=== PATIENT | female | born 1950 | race Caucasian/White ===

== ENCOUNTER 2018-09-04 16:42 | Emergency (ER) | payer BC ==
[~2018-09-04] VITALS: Ht 160 cm; Wt 54.4 kg
[~2018-09-04 16:42] MED LIST: Anti-depressant; METH4TAB PO; Triamterene; VALA100033 PO
--- NOTE | 2018-09-04 17:10 | ED Upper Extremity ---
General Chief Complaint: Upper Extremity Stated Complaint: MIDDLE FINGER L HAND INJ AFTER FALLING OFF STOOL Nursing Triage Note: PT CO OF L MIDDLE FINGER STATES FELL OFF OF STEP LADDER AND HIT SHELF W FINGER, RATES PAIN 11/30 Nursing Sepsis Screen: No Definite Risk Source: patient Exam Limitations: no limitations History of Present Illness Date Seen by Provider: Sep 04, 2018 Time Seen by Provider: 16:55 Initial Comments 68-year-old female who presents to the emergency room with complaints of left third finger pain after she fell off of a step ladder and hit a shelf with her finger. She has mild swelling left third finger. Denies other injuries from the fall. Onset: just prior to arrival Pain/Injury Location: left 3rd finger Method of Injury: fell Modifying Factors: Worse With Movement Allergies and Home Medications Allergies Coded Allergies: No Known Drug Allergies (Unverified , 02/04/13) Home Medications Hydrocodone Bit/Acetaminophen 1 Tab Tab, 1 EACH PO Q4-6HR PRN for PAIN-MODERATE Prescribed by: MANDEEP VALENZUELA on 09/04/18 4885 Patient Home Medication List Home Medication List Reviewed: Yes Review of Systems Constitutional: see HPI; No chills, No fever Musculoskeletal: see HPI, joint pain (left 3rd finger) All Other Systems Reviewed Negative Unless Noted: Yes Past Lgeprve-Uvygnt-Trjntb Hx Past Med/Social Hx: Reviewed Nursing Past Med/Soc Hx Patient Social History Alcohol Use: Rarely Uses Recreational Drug Use: No Smoking Status: Never a Smoker Recent Foreign Travel: No Contact w/Someone Who Travel: No Recent Infectious Disease Expo: No Recent Hopitalizations: No Past Medical History Surgeries: Yes ( x2, face lift) Respiratory: No Cardiac: Yes (Prolapse mitral valve) Neurological: No Gastrointestinal: No Musculoskeletal: No Endocrine: No Cancer: No Psychosocial: No Integumentary: No Blood Disorders: No Family Medical History Reviewed Nursing Family Hx Physical Exam Vital Signs Vital Signs - First Documented 09/04/18 16:50 Temp 97.4 Pulse 86 Resp 14 B/P (MAP) 127/80 (96) Pulse Ox 98 Capillary Refill : Less Than 3 Seconds Height, Weight, BMI Height: 5'3.00" Weight: 120lbs. oz. 54.338722tp; BMI Method:Stated General Appearance: WD/WN, no apparent distress Cardiovascular: normal peripheral pulses, regular rate, rhythm, no edema, no gallop, no JVD, no murmur Respiratory: chest non-tender, lungs clear, normal breath sounds, no respiratory distress, no accessory muscle use Hand: Left (3rd finger), swelling Neurologic/Tendon: normal sensation, normal motor functions, normal tendon functions, responds to pain, no evidence tendon injury Neurologic/Psychiatric: alert, normal mood/affect, oriented x 3 Skin: normal color, warm/dry Progress/Results/Core Measures Results/Orders My Orders Orders - MANDEEP VALENZUELA Finger(S) (09/04/18 16:54) Hydrocodone/Apap 5/325 Tablet (Lortab 5 (09/04/18 17:15) Vital Signs/I&O Blood Pressure Mean: 96 Progress Progress Note : Time: 17:12 Progress Note I have seen and evaluated the patient. She was placed in a baseball finger splint. She agrees with plan of care, plans for discharge, return precautions were given. Departure Impression Primary Impression: Finger fracture, left Qualified Codes: S62.663A - Nondisplaced fracture of distal phalanx of left middle finger, initial encounter for closed fracture Disposition: 01 HOME, SELF-CARE Condition: Stable/Unchanged Departure-Patient Inst. Decision time for Depature: 17:11 Referrals: RE GOETZ DO (PCP/Family) Primary Care Physician Patient Instructions: Finger Fracture Add. Discharge Instructions: Ice to the sore areas at 20 minute intervals. Tylenol and Motrin as directed by the bottle for pain relief. Use the hydrocodone as needed for additional pain relief unrelieved by Tylenol and Motrin. Wear the splint at all times. Follow- up with your primary care provider within 1 week for recheck. Return back to the emergency room for worsening symptoms or concerns as needed. All discharge instructions reviewed with patient and/or family. Voiced understanding. Scripts Hydrocodone Bit/Acetaminophen (Hydrocodone/Acetaminophen 5/325mg Tablet) 1 Tab Tab 1 EACH PO Q4-6HR PRN for PAIN-MODERATE MDD 10, #10 TAB Prov: MANDEEP VALENZUELA 09/04/18 MANDEEP VALENZUELA Sep 04, 2018 17:10
[2018-09-04] MEDS ORDERED: ACHD5005 PO (17:12)
[2018-09-04] MEDS ORDERED: HYDROcodone/APAP 5 MG/325 MG (LORTAB) TAB PO ONE (17:15)
--- NOTE | 2018-09-04 17:15 | Diagnostic Imaging Report ---
EXAMINATION: Single PA view of the left hand, with oblique and lateral views of the third digit. INDICATION: Traumatic left third digit injury. COMPARISON: None. FINDINGS: There is generalized osteopenia of the visualized bones. There is a mildly displaced fracture of the distal phalanx of the third digit, with mild palmar displacement of the distal fracture fragment. Fracture line extends to the distal interphalangeal joint. No additional fractures are identified. Soft tissues are unremarkable. IMPRESSION: Mildly displaced intra-articular fracture of the distal phalanx of the third digit. Dictated by: Dictated on workstation # [id number]
[2018-09-04 17:17] VITALS: BP 127/80
--- OUTSIDE RECORDS SUMMARY | 2018-09-04 20:12 | XMS REPORT | Continuity of Care Document ---
Author Organization Unknown Address Unknown Allergies Active Description Code Type Severity Reaction Onset Reported/Identified Relationship to Patient Clinical Status Yes No Known Drug Allergies [id number] Drug Allergy Unknown N/A 02/04/2013 Medications There is no data. Problems There is no data. Procedures There is no data. Results There is no data. Encounters ACCT No. Visit Date/Time Discharge Status Pt. Type Provider Facility Loc./Unit Complaint [id number] 09/04/2018 16:43:00 09/04/2018 17:23:00 DIS Emergency MANDEEP VALENZUELA [facility] MIDDLE FINGER L HAND INJ AFTER FALLING OFF STOOL [id number] 02/04/2013 10:35:00 02/04/2013 13:33:00 DIS Emergency
--- OUTSIDE RECORDS SUMMARY | 2018-09-04 20:12 | XMS REPORT | Continuity of Care Document ---
Author Author [facility] Organization [facility] Address Unknown Phone Unavailable Care Team Providers Care Boom Worker Name Role Phone GOETZRE DO PP Insurance Providers Payer Name Policy Number Subscriber Name Relationship [facility] [id number] Deborah Bright 01 Self / Same As Patient Advance Directives Directive Response Recorded Date Advance Directives N 02/04/13 10:45am Health Care Power of [employer] Worker N 02/04/13 10:45am Organ Donor N 02/04/13 10:45am Problems No Known Problems or Medical conditions. Social History History Response Recorded Date/Time Alcohol Use Occasionally Uses 02/04/13 10 :45am Recreational Drug Use N 02/04/13 10:45am Allergies, Adverse Reactions, Alerts Allergen Type Severity Reaction Last Updated No Known Drug Allergies 02/04/13 Medications Medication Dose Units Route Sig Qty Days Valacyclovir Hcl (Valtrex) 1000 Mg PO TID 30 Methylprednisolone (Medrol Dose Pack) 0 PO UD 1 [Anti-depressant] [Triamterene] Response Recorded Date/Time Status not known Unknown Results No Known Relevant Diagnostic Tests, Laboratory Data and/or Discharge Summary. Encounters Encounter Location Date/Time Departed Emergency Room [facility] 10:35am
== END 2018-09-04 17:23 | disposition home or self-care (01) ==
LOC: EDUNIT# 16:42 → ER 16:43
DX: S62.603A Fracture of unspecified phalanx of left middle finger, initial encounter for closed fracture (principal); Z98.890 Other specified postprocedural states; W11.XXXA Fall on and from ladder, initial encounter; W22.09XA Striking against other stationary object, initial encounter
CPT/HCPCS: 73140

== ENCOUNTER → 2020-05-29 | Outpatient (CLI) | payer BC ==
[~2020-05-29] MED LIST changes: +ACHD5005 PO; +CATHETER FLUSH 10 ML SYR IV PRN; +HOLD METFORMIN - RECEIVED CONTRAST 20 ML VIAL IV SCH; +IOHEXOL 350 MG/ML 100 ML (OMNIPAQUE 350) VIAL IV ONE; +NS 100 ML (IVPB) BAG IV ONE
[2020-05-29 14:51] LABS: BUN/CREATININE RATIO 24; GFR ESTIMATED > 60
--- NOTE | 2020-05-29 17:03 | Diagnostic Imaging Report ---
PROCEDURE: CT abdomen and pelvis with and without contrast. TECHNIQUE: Precontrast acquisitions were acquired through the abdomen and pelvis. Multiple contiguous axial images were obtained through the abdomen and pelvis after the administration of intravenous contrast. Auto Exposure Controls were utilized during the CT exam to meet ALARA standards for radiation dose reduction. INDICATION: Gross hematuria and pelvic pain. COMPARISON: None. FINDINGS: The lung bases are clear. The heart is normal in size. There is a moderate-sized hiatal hernia. There is a hypoattenuating lesion in segment of the liver which measures up to 2.9 x 2.3 cm in size. This demonstrates irregular mostly peripheral and posterior enhancement which fills in on delayed imaging, and generally appears similar to the blood pool. This appears most consistent with a hemangioma. There is no biliary dilatation. No calcified stones are seen in the gallbladder. The spleen appears normal. The pancreas is unremarkable. The adrenal glands appear normal. There is a small cortical scar at the superior right kidney. The left kidney demonstrates normal enhancement. There is no hydronephrosis bilaterally. No calculi are seen bilaterally. There is no hydroureter. There is a calcification adjacent to the distal right ureter which may be a phlebolith or calcified colonic diverticulum. The bladder is nondistended, but no filling defects are demonstrated. The bowel loops are nondistended without obstruction. The appendix is not well seen, but no secondary findings of appendicitis are demonstrated. There is moderate stool in the distal colon. There is colonic diverticulosis. No diverticulitis is seen. No free fluid or free air is seen. No acute osseous abnormality is seen. There are degenerative changes at L2-L3. IMPRESSION: 1. Normal-appearing kidneys bilaterally. No masses, calculi, or hydronephrosis. 2. Mass on the inferior right liver is most consistent with a hemangioma. 3. Moderate-sized hiatal hernia. 4. Colonic diverticulosis without diverticulitis. Dictated by: Dictated on workstation # [id number]
== END ==
LOC: RAD 14:18
PROVIDERS: ATTEND Nurse Practitioner Family
DX: R31.0 Gross hematuria (principal); K44.9 Diaphragmatic hernia without obstruction or gangrene; K57.30 Diverticulosis of large intestine without perforation or abscess without bleeding
CPT/HCPCS: 36415; 74178; 82565; 84520

== ENCOUNTER 2020-06-05 19:18 | Emergency (ER) | payer BC ==
[~2020-06-05] VITALS: Ht 158 cm; Wt 56.7 kg
[~2020-06-05 19:18] MED LIST changes: -CATHETER FLUSH 10 ML SYR IV PRN; -HOLD METFORMIN - RECEIVED CONTRAST 20 ML VIAL IV SCH; -IOHEXOL 350 MG/ML 100 ML (OMNIPAQUE 350) VIAL IV ONE; -NS 100 ML (IVPB) BAG IV ONE
[2020-06-05] MEDS ORDERED: TRIA1CAP4 (19:39)
[2020-06-05] MEDS ORDERED: VENL150C98 (19:39)
[2020-06-05 19:41] LABS: BILIRUBIN,URINE NEGATIVE (NEGATIVE); CLARITY,URINE SL CLOUDY; COLOR,URINE YELLOW; GLUCOSE, URINE (UA) NEGATIVE (NEGATIVE); KETONES,URINE NEGATIVE (NEGATIVE); LEUKOCYTE ESTERASE ,URINE NEGATIVE (NEGATIVE); NITRITE,URINE NEGATIVE (NEGATIVE); PH,URINE 5.5 (5-9); PROTEIN,URINE 2+ (NEGATIVE)
[2020-06-05 19:59] LABS: BASOPHILS # (AUTO) 0.2 10^3/uL (0.0-0.1); BASOPHILS % (AUTO) 2 % (0-10); EOSINOPHILS # (AUTO) 0.5 10^3/uL (0.0-0.3); EOSINOPHILS % (AUTO) 5 % (0-10); HEMATOCRIT 39 % (35-52); HEMOGLOBIN 13.2 g/dL (11.5-16.0); LYMPHOCYTES # (AUTO) 2.6 10^3/uL (1.0-4.0); LYMPHOCYTES % (AUTO) 26 % (12-44); MEAN CORPUSCULAR HEMOGLOBIN 31 pg (25-34); MEAN CORPUSCULAR HGB CONC 34 g/dL (32-36); MEAN CORPUSCULAR VOLUME 91 fL (80-99); MEAN PLATELET VOLUME 9.8 fL (9.0-12.2); MONOCYTES # (AUTO) 1.2 10^3/uL (0.0-1.0); MONOCYTES % (AUTO) 11 % (0-12); NEUTROPHILS # (AUTO) 5.8 10^3/uL (1.8-7.8); NEUTROPHILS % (AUTO) 56 % (42-75); PLATELET COUNT 253 10^3/uL (130-400); WHITE BLOOD COUNT 10.2 10^3/uL (4.3-11.0)
[2020-06-05] MEDS ORDERED: KETOROLAC 30 MG/ML VIAL IVP ONE (20:00)
--- NOTE | 2020-06-05 20:01 | ED General ---
General Chief Complaint: General Problems/Pain Stated Complaint: L SIDED ABDOMINAL PAIN Nursing Triage Note: intermittant left lower abdomen/groin pain Nursing Sepsis Screen: No Definite Risk Source of Information: Patient Exam Limitations: No Limitations History of Present Illness Date Seen by Provider: Jun 05, 2020 Time Seen by Provider: 19:43 Initial Comments This is a healthy-appearing 70-year-old female who presents to the ER with complaints of left lower quadrant abdominal pain 3 weeks. States she's been having this pain on and off for 3 weeks along with gross hematuria. Has followed up with her primary care and had labs, UA and CT abdomen and pelvis with and without contrast on May 29. States CT abdomen and pelvis did not show anything, but she has not heard anything regarding her labs. Tonight the pain is more severe and rates 10/10, sharp and stabbing, localized to LLQ. Additionally, she reports pressure like she has to urinate but is unable to urinate. Has not taking anything prior to arrival for pain. Denies fevers, chills, cough, shortness of breath, nausea, vomiting, diarrhea, or dysuria. Allergies and Home Medications Allergies Coded Allergies: No Known Drug Allergies (Unverified , 02/04/13) Home Medications Hydrocodone Bit/Acetaminophen 1 Tab Tab, 1 EACH PO Q4-6HR PRN for PAIN-MODERATE Prescribed by: MANDEEP VALENZUELA on 09/04/18 0262 Patient Home Medication List Home Medication List Reviewed: Yes Review of Systems Review of Systems Constitutional: no symptoms reported EENTM: no symptoms reported Respiratory: no symptoms reported Cardiovascular: no symptoms reported Gastrointestinal: see HPI Genitourinary: see HPI Musculoskeletal: no symptoms reported Skin: no symptoms reported Psychiatric/Neurological: No Symptoms Reported Hematologic/Lymphatic: No Symptoms Reported Immunological/Allergic: no symptoms reported Past Xnrvfdo-Bgizbu-Tlchlc Hx Patient Social History Alcohol Use: Rarely Uses Smoking Status: Never a Smoker 2nd Hand Smoke Exposure: No Recent Infectious Disease Expo: No Recent Hopitalizations: No Immunizations Up To Date Tetanus Booster (TDap): Unknown Seasonal Allergies Seasonal Allergies: No Past Medical History Surgeries: Yes ( x2, face lift) Section Respiratory: No Cardiac: Yes (Prolapse mitral valve) Hypertension Neurological: No Genitourinary: No Gastrointestinal: No Musculoskeletal: No Endocrine: No HEENT: No Cancer: No Psychosocial: Yes Anxiety Integumentary: No Blood Disorders: No Physical Exam Vital Signs Vital Signs - First Documented 06/05/20 19:27 Temp 35.7 Pulse 90 Resp 18 B/P (MAP) 167/93 (117) Pulse Ox 99 O2 Delivery Room Air Capillary Refill : Less Than 3 Seconds Height, Weight, BMI Height: 5'3.00" Weight: 120lbs. oz. 54.320435iz; 22.00 BMI Method:Stated General Appearance: No Apparent Distress, WD/WN Eyes: Bilateral Eye Normal Inspection, Bilateral Eye EOMI HEENT: PERRL/EOMI, Moist Mucous Membranes Neck: Full Range of Motion, Normal Inspection Respiratory: Lungs Clear, Normal Breath Sounds Cardiovascular: Regular Rate, Rhythm, No Edema, No Murmur Gastrointestinal: Normal Bowel Sounds, Soft; No Distended; Tenderness (LLQ with deep palpation ) Genital/Rectal: Normal Genital Exam, Normal Vaginal Exam; No Blood at Uretheral Meatus Back: Normal Inspection, No CVA Tenderness Extremity: Normal Capillary Refill, Normal Inspection, Normal Range of Motion, Non Tender Neurologic/Psychiatric: Alert, Oriented x3, No Motor/Sensory Deficits, Normal Mood/Affect Skin: Normal Color, Warm/Dry Progress/Results/Core Measures Suspected Sepsis Recent Fever Within 48 Hours: No Infection Criteria Present: None New/Unexplained Altered Menta: No Sepsis Screen: No Definite Risk SIRS Temperature: Pulse: 90 Respiratory Rate: 18 Laboratory Tests 06/05/20 19:50: White Blood Count 10.2 Blood Pressure 167 /93 Mean: 117 Laboratory Tests 06/05/20 19:50: Creatinine 0.96, Platelet Count 253, Total Bilirubin 0.5 Results/Orders Lab Results Laboratory Tests Test 06/05/20 19:30 06/05/20 19:50 Range/Units Urine Color YELLOW Urine Clarity SL CLOUDY Urine pH 5.5 5-9 Urine Specific [place] >=1.030 1.016-1.022 Urine Protein 2+ H NEGATIVE Urine Glucose (UA) NEGATIVE NEGATIVE Urine Ketones NEGATIVE NEGATIVE Urine Nitrite NEGATIVE NEGATIVE Urine Bilirubin NEGATIVE NEGATIVE Urine Urobilinogen 1.0 < = 1.0 MG/DL Urine Leukocyte Esterase NEGATIVE NEGATIVE Urine RBC (Auto) 3+ H NEGATIVE Urine RBC >100 H /HPF Urine WBC NONE /HPF Urine Crystals PRESENT H /LPF Urine Calcium Oxalate Crystals FEW H /LPF Urine Amorphous Sediment FEW SETH URATES H /LPF Urine Bacteria NEGATIVE /HPF Urine Casts NONE /LPF Urine Mucus SMALL H /LPF Urine Culture Indicated NO White Blood Count 10.2 4.3-11.0 10^3/uL Red Blood Count 4.31 3.80-5.11 10^6/uL Hemoglobin 13.2 11.5-16.0 g/dL Hematocrit 39 35-52 % Mean Corpuscular Volume 91 80-99 fL Mean Corpuscular Hemoglobin 31 25-34 pg Mean Corpuscular Hemoglobin Concent 34 32-36 g/dL Red Cell Distribution Width 12.5 10.0-14.5 % Platelet Count 253 130-400 10^3/uL Mean Platelet Volume 9.8 9.0-12.2 fL Immature Granulocyte % (Auto) 1 % Neutrophils (%) (Auto) 56 42-75 % Lymphocytes (%) (Auto) 26 12-44 % Monocytes (%) (Auto) 11 0-12 % Eosinophils (%) (Auto) 5 0-10 % Basophils (%) (Auto) 2 0-10 % Neutrophils # (Auto) 5.8 1.8-7.8 10^3/uL Lymphocytes # (Auto) 2.6 1.0-4.0 10^3/uL Monocytes # (Auto) 1.2 H 0.0-1.0 10^3/uL Eosinophils # (Auto) 0.5 H 0.0-0.3 10^3/uL Basophils # (Auto) 0.2 H 0.0-0.1 10^3/uL Immature Granulocyte # (Auto) 0.1 0.0-0.1 10^3/uL Sodium Level 135 135-145 MMOL/L Potassium Level 3.2 L 3.6-5.0 MMOL/L Chloride Level 97 L 98-107 MMOL/L Carbon Dioxide Level 26 21-32 MMOL/L Anion Gap 12 5-14 MMOL/L Blood Urea Nitrogen 20 H 7-18 MG/DL Creatinine 0.96 0.60-1.30 MG/DL Estimat Glomerular Filtration Rate 58 BUN/Creatinine Ratio 21 Glucose Level 92 70-105 MG/DL Calcium Level 9.5 8.5-10.1 MG/DL Corrected Calcium 9.3 8.5-10.1 MG/DL Total Bilirubin 0.5 0.1-1.0 MG/DL Aspartate Amino Transf (AST/SGOT) 31 5-34 U/L Alanine Aminotransferase (ALT/SGPT) 33 0-55 U/L Alkaline Phosphatase 100 40-136 U/L C-Reactive Protein High Sensitivity 0.04 0.00-0.50 MG/DL Total Protein 7.2 6.4-8.2 GM/DL Albumin 4.3 3.2-4.5 GM/DL My Orders Orders - EKATERINA MEZA PATIENT SERVICE SPECIALIST Ua Culture If Indicated (06/05/20 19:20) Cbc With Automated Diff (06/05/20 19:54) Comprehensive Metabolic Panel (06/05/20 19:54) Hs C Reactive Protein (06/05/20 19:54) Ketorolac Injection (Toradol Injection) (06/05/20 20:00) Fentanyl Injection (Sublimaze Injection (06/05/20 20:30) Medications Given in ED Current Medications Medications Dose Ordered Sig/Ernestina Route Start Time Stop Time Status Last Admin Dose Admin Fentanyl Citrate 25 mcg ONCE PRN IVP 06/05/20 20:30 06/05/20 20:35 25 MCG Ketorolac Tromethamine 15 mg ONCE ONCE IVP 06/05/20 20:00 06/05/20 20:01 DC 06/05/20 20:01 15 MG Vital Signs/I&O 06/05/20 06/05/20 06/05/20 19:27 20:01 20:35 Temp 35.7 35.7 35.7 Pulse 90 Resp 18 B/P (MAP) 167/93 (117) Pulse Ox 99 O2 Delivery Room Air Capillary Refill : Less Than 3 Seconds Blood Pressure Mean: 117 Progress Note : Progress Note Pt. examined. In no acute distress. Will obtain basic labs and UA. Reviewed CT abd/pelvis on May 29, which showed no acute findings. Basic labs and UA ordered. Toradol 15mg IVP given for pain. Pain decreased to 5/10. Orders placed for Fentanyl 25mcg IVP. UA shows no signs of infection, 3+ blood, >100 RBC, neg bacteria and WBC. With neg. CT/abd pelvis, no s/s UTI, her gross hematuria is concerning for ureter/bladder cancer. Recommended follow up with Dr. Daily Urologist for further evaluation. She is agreeable with this. Reviewed discharge plan and she is agreeable with plan. Departure Impression Primary Impression: Hematuria Disposition: HOME, SELF-CARE Condition: Improved Departure-Patient Inst. Decision time for Depature: 20:29 Referrals: RE GOETZ DO (PCP/Family) Primary Care Physician Patient Instructions: Blood in the Urine (Hematuria), Adult (DC) Add. Discharge Instructions: Plan: 1. Discharge home. Drink plenty of fluids. 2. May take Tylenol or Ibuprofen as needed for pain per package instructions. 3. Call Dr. Daily office tomorrow to schedule follow up appointment for blood in urine. Phone number is [phone]. 4. Return for any new or concerning symptoms. All discharge instructions reviewed with patient and/or family. Voiced understanding. EKATERINA MEZA PATIENT SERVICE SPECIALIST Jun 05, 2020 20:01
[2020-06-05 20:02] LABS: BACTERIA,URINE NEGATIVE /HPF; RBC,URINE >100 /HPF
[2020-06-05 20:03] LABS: AMORPHOUS SEDIMENT,UR FEW AMOR URATES /LPF; CALCIUM OXALATE CRYSTALS,UR FEW /LPF
[2020-06-05 20:18] LABS: ALBUMIN 4.3 GM/DL (3.2-4.5); BILIRUBIN,TOTAL 0.5 MG/DL (0.1-1.0); CALCIUM 9.5 MG/DL (8.5-10.1); POTASSIUM 3.2 MMOL/L (3.6-5.0); TOTAL PROTEIN 7.2 GM/DL (6.4-8.2)
[2020-06-05 20:29] LABS: CREATININE SERUM 0.96 MG/DL (0.60-1.30)
[2020-06-05] MEDS ORDERED: fentaNYL INJECTION 100 MCG/2 ML AMP IVP PRN (20:30)
[2020-06-05 20:35] VITALS: BP 151/79
== END 2020-06-05 20:37 | disposition home or self-care (01) ==
LOC: EDUNIT# 19:18 → ER 19:20
DX: R31.9 Hematuria, unspecified (principal)
CPT/HCPCS: 36415; 80053; 81000; 85025; 86141